=== PATIENT | male | born 1980 | race Caucasian/White ===

== ENCOUNTER 2016-12-24 14:15 | Inpatient (IN) | payer BC ==
[~2016-12-24] VITALS: Ht 182.9 cm; Wt 94.1 kg
[2016-12-24 13:45] VITALS: BP 126/73
[2016-12-24] MEDS ORDERED: FLOMAX0.4 MG PO (15:46)
[2016-12-24 16:00] VITALS: BP 124/77
[2016-12-24 19:52] VITALS: BP 119/54
[2016-12-25 00:27] VITALS: BP 104/63
[2016-12-25 03:44] VITALS: BP 112/62
[2016-12-25 03:58] LABS: ABSOLUTE NEUTROPHILS 5.4 thou/uL (1.4-8.2); BASOPHILS 0.2 % (0.0-2.0); EOSINOPHILS 0.8 % (0.0-3.0); HEMATOCRIT 37.3 % (42.0-52.0); HEMOGLOBIN 12.9 gm/dL (14.0-18.0); LYMPHOCYTES 29.4 % (24.0-44.0); MCH 27.8 pg (26.0-34.0); MCHC 34.5 g/dL (28.0-37.0); MCV 80.4 fL (80.0-100.0); MONOCYTES 9.6 % (1.0-8.0); PLATELET COUNT 239 thou/uL (150-400); RBC 4.64 mil/uL (4.50-6.00); RDW 13.9 % (10.5-14.5); WBC 8.9 thou/uL (4.0-11.0)
[2016-12-25 04:00] LABS: MANUAL DIFF NO
[2016-12-25 04:16] LABS: CALCIUM 7.8 mg/dL (8.5-10.1); CREATININE 1.3 mg/dL (0.7-1.3); MAGNESIUM 1.6 mg/dL (1.8-2.4); POTASSIUM 4.1 mmol/L (3.5-5.1); TOTAL BILIRUBIN 0.7 mg/dL (<0.1-1.0); TOTAL PROTEIN 5.8 g/dL (6.4-8.2)
[2016-12-25 08:16] VITALS: BP 115/74
[2016-12-25 09:40] LABS: URINE BILIRUBIN NEGATIVE (Negative); URINE BLOOD NEGATIVE (Negative); URINE COLOR YELLOW; URINE GLUCOSE-RANDOM* NEGATIVE (Negative); URINE KETONES NEGATIVE (Negative); URINE NITRITE NEGATIVE (Negative); URINE PROTEIN (DIPSTICK) TRACE (Negative); URINE SPECIFIC GRAVITY >= 1.030 (1.003-1.035); URINE UROBILINOGEN 0.2 E.U./dl (0.2-1.0)
[2016-12-25 11:00] VITALS: BP 128/75
[2016-12-25 20:03] VITALS: BP 129/68
[2016-12-26 04:18] VITALS: BP 113/66
[2016-12-26 06:53] LABS: HEMATOCRIT 38.1 % (42.0-52.0); HEMOGLOBIN 12.8 gm/dL (14.0-18.0); MCH 27.4 pg (26.0-34.0); MCHC 33.5 g/dL (28.0-37.0); MCV 81.9 fL (80.0-100.0); RBC 4.65 mil/uL (4.50-6.00); RDW 13.7 % (10.5-14.5); WBC 6.4 thou/uL (4.0-11.0)
[2016-12-26 07:02] LABS: CREATININE 1.2 mg/dL (0.7-1.3); POTASSIUM 3.9 mmol/L (3.5-5.1)
[2016-12-26 08:00] VITALS: BP 141/84
[2016-12-26] MEDS ORDERED: HYDROCODONE-AP1 EAC6 PO (13:13)
[2016-12-26 13:53] VITALS: BP 141/84
[2016-12-26 14:46] VITALS: BP 141/84
== END 2016-12-26 14:34 | disposition home or self-care (01) | DRG 669 ==
LOC: 3N 14:15
PROVIDERS: Internal Medicine; Nurse Practitioner; Nurse Practitioner Family
PROC: 0T768DZ Dilation of Right Ureter with Intraluminal Device, Via Natural or Artificial Opening Endoscopic (ICD-10-PCS; principal; 2016-12-25)
PROC: 0TC68ZZ Extirpation of Matter from Right Ureter, Via Natural or Artificial Opening Endoscopic (ICD-10-PCS; principal; 2016-12-25)
DX: N20.2 Calculus of kidney with calculus of ureter (principal); N17.9 Acute kidney failure, unspecified; Z88.0 Allergy status to penicillin
CPT/HCPCS: 10795; 50010; 50101; 50164; 50478; 51179; 51767; 53331; 53650; 56815; 62110; 62900; 70005